=== PATIENT | female | born 1975 | race Caucasian/White ===

== ENCOUNTER 2018-07-28 22:05 | Emergency (ER) | payer OTHER ==
[~2018-07-28] VITALS: Ht 170.2 cm; Wt 54.4 kg
--- NOTE | 2018-07-28 22:20 | NUR ---
PATIENT BIB [facility] ACCOPANIED BY [employer] ON HANDCUFF FROM HOME FOR C/O SI,ETOH PER RESCUE REPORT. PATIENT UPON ARRIVAL SMELLS OF ETOH,SLURRING SPEECH, WITH UNSTEADY GAIT. PATIENT UNCOOPERATIVE AT THIS TIME ATTEMPTING TO ELOPE STATING "I JUST WANT TO GO HOME."PROVIDED COMFORT AND SAFETY MEASURES
[2018-07-28] MEDS ORDERED: NEOMY/POLYMYX B/HC OTIC SOL 10 ML BOTTLE ONE (22:27)
[2018-07-28] MEDS ORDERED: NEOMY/POLYMYX B/HC OTIC SOL 10 ML BOTTLE OT ONE (22:30)
[2018-07-28] MEDS ORDERED: LORAZEPAM 2 MG/1 ML VIAL ONE (22:40)
[2018-07-28] MEDS ORDERED: HALOPERIDOL LACTATE 5 MG/1 ML VIAL ONE (22:40)
--- NOTE | 2018-07-28 22:40 | NUR ---
PATIENT UNCOOPERATIVE, ATTEMPTING TO ELOPE. PATIENT UNSTEADY. DR DON MADE AWARE
[2018-07-28] MEDS ORDERED: LORAZEPAM 2 MG/1 ML VIAL IM ONE (22:45)
[2018-07-28] MEDS ORDERED: HALOPERIDOL LACTATE 5 MG/1 ML VIAL IM ONE (22:45)
--- NOTE | 2018-07-28 23:06 | NUR ---
PATIENT COOPERATIVE. REMOVED SOFT RESTRAINT. NO DISTRESS NOTED
[2018-07-28 23:10] LABS: BASOPHILS # (AUTO) 0.1 K/uL (0.0-8.0); BASOPHILS % (AUTO) 1.2 % (0.0-2.0); EOSINOPHILS % (AUTO) 0.4 % (0.0-7.0); HEMATOCRIT 43.9 % (31.2-41.9); HEMOGLOBIN 15.3 g/dL (10.9-14.3); LYMPHOCYTES # (AUTO) 2.5 K/uL (20.0-40.0); MEAN CORPUSCULAR HEMOGLOBIN 33.8 uug (24.7-32.8); MEAN CORPUSCULAR HGB CONC 35 g/dL (32.3-35.6); MEAN CORPUSCULAR VOLUME 97.4 fL (75.5-95.3); MONOCYTES # (AUTO) 0.9 K/uL (2.0-10.0); NEUTROPHILS # (AUTO) 6.5 K/uL (1.8-8.9); NEUTROPHILS % (AUTO) 64.4 % (38.5-71.5); PLATELET COUNT (AUTO) 288 K/uL (179-408); RED BLOOD CELL COUNT(AUTO) 4.51 MIL/uL (3.63-4.92); WHITE BLOOD COUNT (AUTO) 10.1 K/uL (3.8-11.8)
[2018-07-28 23:11] LABS: *BILIRUBIN,URIN NEGATIVE (NEGATIVE); *BLOOD, URINE 3+ (NEGATIVE); *CLARITY,URINE SLIGHTLY CLOUDY (CLEAR); *COLOR,URINE YELLOW (YELLOW); *KETONES,URINE NEGATIVE (NEGATIVE); *UROBILINOGEN,URINE 0.2 E.U./dl (NORMAL); LEUKOCYTE ESTERASE ,URINE NEGATIVE (NEGATIVE); NITRITE, URINE NEGATIVE (NEGATIVE); PH,URINE 5.5 (5.0-8.0); UGLUCOSE NEGATIVE (NEGATIVE)
[2018-07-28 23:23] LABS: ALANINE AMINOTRANSFERASE 30 U/L (14-59); ALKALINE PHOSPHATASE 84 U/L (50-136); ASPARTATE AMINOTRANSFERASE 32 U/L (15-37); BILIRUBIN,DIRECT 0.1 mg/dL (0.0-0.2); BILIRUBIN,TOTAL 0.3 mg/dL (0.2-1.0); CARBON DIOXIDE 23 mmol/L (21-32); CHLORIDE 103 mmol/L (98-107); CREATININE 0.9 mg/dL (0.6-1.3); GLUCOSE 99 mg/dL (74-106); POTASSIUM 3.3 mmol/L (3.5-5.1); TOTAL PROTEIN, SERUM 7.5 g/dL (6.4-8.2); UREA NITROGEN, BLOOD 8 mg/dL (7-18)
[2018-07-28 23:25] LABS: ACETAMINOPHEN < 2.0 ug/mL (10-30)
[2018-07-28 23:29] LABS: RBC,URINE 20-50 /HPF (0-3)
[2018-07-28 23:30] LABS: BACTERIA,URINE MODERATE /HPF (NONE SEEN); SQUAMOUS EPITHELIAL CELL,UR MANY /HPF (NONE SEEN)
[2018-07-28 23:31] LABS: ETHANOL 399 MG/DL (0-0)
[2018-07-28 23:34] LABS: *AMPHETAMINE, URINE NEGATIVE (NEGATIVE); *BARBITURATE, URINE NEGATIVE (NEGATIVE); *CANNABINOID, URINE NEGATIVE (NEGATIVE); *COCCAINE, URINE NEGATIVE (NEGATIVE); *OPIATE, URINE NEGATIVE (NEGATIVE); *PHENCYCLIDINE SCREEN,URINE NEGATIVE (NEGATIVE)
--- NOTE | 2018-07-28 23:43 | NUR ---
DR DON SPEAKING WITH [facility]NA[facility]
--- NOTE | 2018-07-28 23:51 | NUR ---
DR DON SPOKE WITH MARCIE ROLLE, DR BORGES WHO AGREES TO HAVE PATIENT EVAL BY PET IN AM. GAVE AUTH # [id number]
--- NOTE | 2018-07-29 03:11 | NUR ---
PATIENT SLEEPING WITH NO DISTRESS NOTED
--- NOTE | 2018-07-29 06:00 | NUR ---
PATIENT AWAKE. A/OX3,SPEAKING WITH CLEAR SPEECH. PATIENT DENIES SI,HOMICIDAL IDEATION REQUESTING TO GO HOME
--- NOTE | 2018-07-29 06:05 | NUR ---
DR DON INTO RE EVAL PATIENT.
[2018-07-29 06:29] VITALS: BP 142/82
--- NOTE | 2018-07-29 06:29 | NUR ---
Patient discharged to home in stable conditon VIA TAXI. Written and verbal after care instructions given. Patient verbalizes understanding of instructions. WALKED OUT OF ER WITH NO DISTRESS NOTED
== END 2018-07-29 06:30 | disposition home or self-care (01) ==
LOC: ER 22:06
DX: F10.129 Alcohol abuse with intoxication, unspecified (principal); Y90.8 Blood alcohol level of 240 mg/100 ml or more
CPT/HCPCS: 36415; 71045; 80048; 80076; 80307; 81001; 84702; 85025; 93005; 96372 ×2; 99284; G0480 ×2; G0481; J1630; J2060; A4663; J3590

== ENCOUNTER 2018-11-02 08:10 | Emergency (ER) | payer OTHER ==
[~2018-11-02] VITALS: Ht 170.2 cm; Wt 53.1 kg
--- NOTE | 2018-11-02 08:15 | NUR ---
PT REFUSED HAVING EKG DONE.
--- NOTE | 2018-11-02 08:15 | NUR ---
DR DON AT THE BEDSIDE FOR MSE. GALLO RELEASE THE PT.
[2018-11-02 08:40] LABS: BASOPHILS % (AUTO) 0.5 % (0.0-2.0); EOSINOPHILS # (AUTO) 0.1 K/uL (0.0-0.7); EOSINOPHILS % (AUTO) 1.6 % (0.0-7.0); HEMOGLOBIN 15.8 g/dL (10.9-14.3); LYMPHOCYTES # (AUTO) 2.5 K/uL (20.0-40.0); LYMPHOCYTES % (AUTO) 39.7 % (20.5-51.5); MEAN CORPUSCULAR HEMOGLOBIN 33.3 uug (24.7-32.8); MEAN CORPUSCULAR HGB CONC 34 g/dL (32.3-35.6); MEAN CORPUSCULAR VOLUME 97.2 fL (75.5-95.3); MONOCYTES # (AUTO) 0.5 K/uL (2.0-10.0); MONOCYTES % (AUTO) 7.4 % (0.0-11.0); NEUTROPHILS # (AUTO) 3.2 K/uL (1.8-8.9); NEUTROPHILS % (AUTO) 50.8 % (38.5-71.5); PLATELET COUNT (AUTO) 194 K/uL (179-408); RED BLOOD CELL COUNT(AUTO) 4.73 MIL/uL (3.63-4.92); WHITE BLOOD COUNT (AUTO) 6.4 K/uL (3.8-11.8)
--- NOTE | 2018-11-02 08:40 | NUR ---
PT AGREED HAVING EKG DONE, BUT REFUSED X RAY.
--- NOTE | 2018-11-02 08:40 | NUR ---
DR DON AWARE OF PT'S REFUSAL W/ CARE.
[2018-11-02 08:42] LABS: CARBON DIOXIDE 25 mmol/L (21-32); CHLORIDE 106 mmol/L (98-107); CREATININE 0.8 mg/dL (0.6-1.3); GLUCOSE 93 mg/dL (74-106); POTASSIUM 3.6 mmol/L (3.5-5.1); UREA NITROGEN, BLOOD 10 mg/dL (7-18)
[2018-11-02 08:44] LABS: ETHANOL 420 MG/DL (0-0)
[2018-11-02 08:48] LABS: ALANINE AMINOTRANSFERASE 70 U/L (14-59); ALKALINE PHOSPHATASE 100 U/L (50-136); ASPARTATE AMINOTRANSFERASE 46 U/L (15-37); BILIRUBIN,DIRECT 0.1 mg/dL (0.0-0.2); BILIRUBIN,TOTAL 0.2 mg/dL (0.2-1.0); TOTAL PROTEIN, SERUM 6.9 g/dL (6.4-8.2)
[2018-11-02 08:54] LABS: ACETAMINOPHEN < 2.0 ug/mL (10-30)
--- NOTE | 2018-11-02 09:32 | NUR ---
Patient is resting comfortably in bed with eyes closed, KALIA noted.
--- NOTE | 2018-11-02 10:00 | NUR ---
Patient eloped from facility. ER physician notified.
== END 2018-11-02 10:02 | disposition left against medical advice (07) ==
LOC: ER 08:10
DX: F10.129 Alcohol abuse with intoxication, unspecified (principal); Z88.0 Allergy status to penicillin; Y90.8 Blood alcohol level of 240 mg/100 ml or more
CPT/HCPCS: 80048; 80076; 85025; 93005; 99284; G0480 ×2; G0481; A4663

== ENCOUNTER 2021-05-09 09:15 | Emergency (ER) | payer OTHER ==
[~2021-05-09] VITALS: Ht 170.2 cm; Wt 70.3 kg
--- NOTE | 2021-05-09 09:36 | NUR ---
BIB [facility] FOR POSSIBLE ETOH ABUSE. PATIENT IS AWAKE AND ALERT, STATES SHE DRANK A LOT TODAY. PLACED ON A MONITOR. SIDERAILS UP X2
[2021-05-09] MEDS ORDERED: LIBRIUM (09:41)
[2021-05-09] MEDS ORDERED: QUET25TA3 (09:41)
[2021-05-09] MEDS ORDERED: SERT50TA14 (09:41)
[2021-05-09] MEDS ORDERED: GABAPENTIN (09:41)
[2021-05-09] MEDS ORDERED: IV NORMAL SALINE 1000 ML BAG IV ONE (09:45)
[2021-05-09] MEDS ORDERED: KETAMINE HCL 500 MG/10 ML INJ ONE (09:57)
[2021-05-09 10:00] LABS: HEMATOCRIT 50.8 % (31.2-41.9); MEAN CORPUSCULAR HEMOGLOBIN 33.8 uug (24.7-32.8); MEAN CORPUSCULAR VOLUME 97.9 fL (75.5-95.3); PLATELET COUNT (AUTO) 227 K/uL (179-408)
[2021-05-09] MEDS ORDERED: KETAMINE HCL 500 MG/10 ML INJ IM ONE (10:00)
[2021-05-09 10:12] LABS: CARBON DIOXIDE 25 mmol/L (21-32); CHLORIDE 107 mmol/L (98-107); CREATININE 0.9 mg/dL (0.6-1.3); GLUCOSE 95 mg/dL (74-106); UREA NITROGEN, BLOOD 8 mg/dL (7-18)
--- NOTE | 2021-05-09 10:15 | NUR ---
I WAS IN THE ROOM WITH OTHER RN WHEN PATIENT STARTED TO BECOME APNEIC... SP02 WENT FROM 96% TO 82%... I IMMEDIATELY OPENED HER AIRWAY AND USED AMBUBAG TO VENTILATE PATIENT... SP02 WENT UP TO 99% AND DR RANGEL WAS CALLED TO THE ROOM RIGHT AWAY. RT WAS ALSO CALLED TO THE ROOM. HEART RATE REMAINED >100 BPM THROUGHOUT. NARCAN WAS GIVEN BY OTHER RN. AFTER A FEW MINUTES, SHE STARTED TO BREATHE ON HER OWN, MD PLACED A NASAL CANNULA AT 2LPM. PATIENT REMAINS ON A MONITOR AND IS BEING CLOSELY WATCHED. SHE OPENS HER EYES TO PRESSURE STIMULI
[2021-05-09 10:16] LABS: ALANINE AMINOTRANSFERASE 27 U/L (14-59); ALKALINE PHOSPHATASE 90 U/L (50-136); ASPARTATE AMINOTRANSFERASE 28 U/L (15-37); BILIRUBIN,DIRECT 0.1 mg/dL (0.0-0.2); BILIRUBIN,TOTAL 0.4 mg/dL (0.2-1.0); TOTAL PROTEIN, SERUM 7.9 g/dL (6.4-8.2)
[2021-05-09 10:20] LABS: ACETAMINOPHEN < 2.0 ug/mL (10-30)
[2021-05-09] MEDS ORDERED: NALOXONE HCL 0.4 MG/ML AMPUL ONE ×2 (10:21→10:24)
[2021-05-09 10:27] LABS: ETHANOL 436 MG/DL (0-0)
[2021-05-09 10:44] LABS: *BILIRUBIN,URIN NEGATIVE (NEGATIVE); *BLOOD, URINE NEGATIVE (NEGATIVE); *CLARITY,URINE CLEAR (CLEAR); *COLOR,URINE YELLOW (YELLOW); *KETONES,URINE NEGATIVE (NEGATIVE); *UROBILINOGEN,URINE 0.2 E.U./dl (NORMAL); LEUKOCYTE ESTERASE ,URINE NEGATIVE (NEGATIVE); NITRITE, URINE NEGATIVE (NEGATIVE); UGLUCOSE NEGATIVE (NEGATIVE)
[2021-05-09 10:53] LABS: *AMPHETAMINE, URINE NEGATIVE (NEGATIVE); *CANNABINOID, URINE NEGATIVE (NEGATIVE); *COCCAINE, URINE NEGATIVE (NEGATIVE); *OPIATE, URINE NEGATIVE (NEGATIVE); *PHENCYCLIDINE SCREEN,URINE NEGATIVE (NEGATIVE)
[2021-05-09] MEDS ORDERED: HALOPERIDOL LACTATE 5 MG/1 ML VIAL IM ONE (12:15)
--- NOTE | 2021-05-09 12:19 | NUR ---
PATIENT TRIED TO GET OUT OF BED ND WALK SEVERAL TIMES AND SHE IS A FALL RISK. DR RANGEL NOTIFIED. HALDOL GIVEN ORDERED. SHE WAS INSTRUCTED TO REMAIN IN THE BED
[2021-05-09] MEDS ORDERED: HALOPERIDOL LACTATE 5 MG/1 ML VIAL ONE (12:22)
--- NOTE | 2021-05-09 14:31 | NUR ---
PATIENT PULLED OUT BOTH HER IV'S BY ACCIDENT. PRESSURE APPLIED. CATHETER TIPS WERE INTACT.
--- NOTE | 2021-05-09 15:30 | NUR ---
patient ambulated to bathroom with steady gait and was able to void urine
--- NOTE | 2021-05-09 16:15 | NUR ---
PATIENT IS SITTING UP EATING DINNER WITH NO COMPLAINTS. STATES WANTS TO GO HOME NOW AND FEELS MUCH BETTER. SHE CALLED HER RELATIVE WHO WILL BE DRIVING HER HOME. SHE IS AMBULATORY WITH STEADY GAIT
--- NOTE | 2021-05-09 16:35 | NUR ---
PATIENT'S RELATIVE, REHANA IS HERE AT BEDSIDE TO DRIVE PATIENT HOME. DR RANGEL WAS AT BEDSIDE TOO SPEAKING TO PATIENT AND REHANA.
[2021-05-09] MEDS ORDERED: CHLO25CA22 PO (16:50)
--- NOTE | 2021-05-09 17:04 | NUR ---
DC, Rx (and all precautions) AND FOLLOW UP INSTRUCTIONS GIVEN AND EXPLAINED TO PATIENT WHO STATES sHE UNDERSTANDS ALL INSTRUCTIONS. karin to drive her home
== END 2021-05-09 17:05 | disposition home or self-care (01) ==
LOC: ER 09:15
DX: F10.229 Alcohol dependence with intoxication, unspecified (principal); Y90.8 Blood alcohol level of 240 mg/100 ml or more; F41.9 Anxiety disorder, unspecified; R94.31 Abnormal electrocardiogram [ECG] [EKG]; I10 Essential (primary) hypertension; R00.0 Tachycardia, unspecified; Z88.0 Allergy status to penicillin
CPT/HCPCS: 36415; 80048; 80076; 80299; 80307; 80320; 81003; 84484; 84702; 85025; 93005; 96372 ×2; 99285; J1630; J2310; J3490; 70030-TC; A4663; G0480; J7030

== ENCOUNTER 2021-12-23 10:13 | Emergency (ER) | payer OTHER ==
[~2021-12-23] VITALS: Ht 170.2 cm; Wt 63.5 kg
[~2021-12-23 10:13] MED LIST: CHLO25CA22 PO; GABAPENTIN; LIBRIUM; QUET25TA3; SERT50TA14
[2021-12-23] MEDS ORDERED: ONDANSETRON ODT 4 MG TAB.RAPDIS ONE (10:22)
--- NOTE | 2021-12-23 10:25 | NUR ---
Dr Swanson at the bedside for MSE.
[2021-12-23] MEDS ORDERED: ONDANSETRON ODT 4 MG TAB.RAPDIS SL ONE (10:30)
--- NOTE | 2021-12-23 10:49 | NUR ---
Patient is resting comfortably in bed with eyes closed, NAD noted.
--- NOTE | 2021-12-23 12:51 | NUR ---
Patient discharged to home in stable condition. Written and verbal after care instructions given. Patient verbalizes understanding of instructions. Stressed follow up or return to ER for worsening s/s. Pt refused to sign d/c paperwork. Pt left ER w/ staedy gait.
[2021-12-23 12:52] VITALS: BP 115/77
== END 2021-12-23 12:55 | disposition home or self-care (01) ==
LOC: ER 10:14
DX: F10.229 Alcohol dependence with intoxication, unspecified (principal)
CPT/HCPCS: A4663; Q0162